=== PATIENT | male | born 1985 | race Caucasian/White ===

== ENCOUNTER 2024-11-25 14:25 | Outpatient (AMB) | payer OTHER, SELFPAY ==
--- NOTE | 2024-11-25 14:27 | A.OFFPC_ITS ---
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 Intake Note: new patient to establish care Inventory Analyst Required: No Allergies No Known Allergies Allergy (Verified 11/25/24 14:28) Medication List - Last Reconciled 11/25/24 by Rosalee Alvarez PA-C No Known Home Meds Tobacco use date assessed: 11/25/24 Dental Screening Dental Screen Date: 11/25/24 Did you have a dental visit in the last 12 months?: Yes Did you have a dental problem in the last 6 months where you did not have access to dental care?: No Was dental information given to patient?: Patient has dentist HPI 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 Patient states that the hernia has been on and off for the past year and that anytime he does heavy lifting or certain exercises he has a bulge in his groin area. It is reducible. It is now intermittently becoming painful. He wants this taken care of. He is trying to live a very healthy and active lifestyle. Psych: Recently quit drinking completely and is following with a therapist for his anxiety, PTSD and depression. He has a longstanding history of this following his deployment to [place]. He is going to plan to meet with a med prescriber at some point. Neuro: He has headaches following his [place] deployment. He has had an MRI. He states that there is no change in the headaches and that he does get them about once a month. Relieved with OTC analgesics. Has been evaluated for this. GI: Had a colonoscopy last year. He does have some IBS symptoms of diarrhea. Again, this did all also start after his deployment and thought likely to be related to stress related to his [place] deployment but also he had significant burn pit exposure. He has a family history of colon cancer and was told despite the normal colonoscopy he does need to return around 2028 for repeat colonoscopy. GI symptoms stable and at baseline. CV: Since quitting drinking his blood pressure has been a lot better. He is also down about 10 lb. PFSH Medical History (Updated 11/25/24 @ 14:54 by Rosalee Alvarez PA-C) No pertinent past medical history Surgical History (Updated 11/25/24 @ 14:34 by Earlene Perez MA) History of gastric surgery Family History (Updated 11/25/24 @ 14:33 by Earlene Perez MA) Paternal Grandfather Substance abuse Cardiovascular disease Maternal Grandmother Cancer Mother Hypertension Father Hypertension Social History (Updated 11/25/24 @ 14:32 by Earlene Perez MA) Household Members: Spouse and Children Both parents involved: No Caregiver staying overnight: No Housing: House Are you a primary critical care paramedic to a significant other at home: No Do you presently have visiting nurse or other home services: No 75 years or older and lives alone: No Alcohol intake: current Alcohol intake frequency: a few times a month Patient Tobacco Use Status: Never used Tobacco e-Cigarette/Vaping Use: Never Used Second Hand Smoke Exposure: No Current occupational status: employed Current occupation: [email or web address] Cognitive needs: No Hearing needs: No Vision needs: No Questionnaire PHQ-9 Over the last 2 weeks, how often have you been bothered by any of the following problems? 1. Little interest or pleasure in doing things: not at all 2. Feeling down, depressed, or hopeless: not at all 3. Trouble falling or staying asleep, or sleeping too much: several days 4. Feeling tired or having little energy: not at all 5. Poor appetite or overeating: not at all 6. Feeling bad about yourself - or that you are a failure or have let yourself or your family down: not at all 7. Trouble concentrating on things, such as reading the newspaper or watching television: not at all 8. Moving or speaking so slowly that other people could have noticed. Or the opposite - being so fidgety or restless that you have been moving around a lot more than usual: not at all 9. Thoughts that you would be better off or of hurting yourself in some way: not at all Total score: 1 Depression Screening Interpretation: Positive Depression Screening Follow-up: Existing condition and In treatment Depression Screening Done: Yes 47915 - PHQ-9 Billing: Yes Source: Developed by Drs. Zeke L. JobMely haile, Asim Bishop and colleagues, with an educational disha from [employer]. Thrive Questionnaire Date Thrive assessed: 11/25/24 I am a: Patient What is your living situation today?: I have a steady place to live Within the past 12 months, did the food you bought not last and you didn't have the money to get more?: Never true Within the past 12 months, did you worry whether your food would run out before you got money to buy more?: Never true Do you have trouble paying for medicines?: No Do you have trouble getting transportation to medical appointments?: No Do you have trouble paying your heating and electricity bill?: No Do you have trouble taking care of your child, family member or friend?: No Do you have trouble with day-to-day activities such as bathing, preparing meals, shopping, managing finances, etc.?: No Are you currently unemployed and looking for a job?: No Are you interested in more education?: No Please select the resources that you would like help with: None Currently or been in a relationship where the following occur: No concerns reported THRIVE Score: 0 AUDIT C Alcohol Use Questionnaire (AUDIT-C) 1. How often do you have a drink containing alcohol?: 2-4 times a month 2. How many drinks containing alcohol do you have on a typical day when you are drinking?: 3 or 4 3. How often do you have six or more drinks on one occasion?: Less than monthly Total Score: 4 Score Reviewed/Action Taken: Yes YUKO-7 AMB Questionnaire YUKO-7 Date YUKO - 7 assessed: 11/25/24 Feeling nervous, anxious, or on edge: 0 = Not at all Not being able to stop or control worryin = Not at all Worrying too much about different things: 0 = Not at all Trouble relaxin = Not at all Being so restless that it is hard to sit still: 0 = Not at all Becoming easily annoyed or irritable: 0 = Not at all Feeling afraid as if something awful might happen: 0 = Not at all Total YUKO-7 score (0-4 normal; 5-9 mild; 10-14 moderate; 15-21 severe): 0 Source: Developed by Mely Vilchis Kurt Kroenke and colleagues, with an educational disha from [employer]. YUKO-7 Assessment Billing YUKO-7 Assessment Tool: UYKO-7 Assessment 99646 Physical exam (Primary Care) Vital Signs: Last Vital Signs Pulse 78 11/25/24 14:34 Resp 13 11/25/24 14:34 BP 118/68 11/25/24 14:34 Pulse Ox 97 11/25/24 14:34 Oxygen Delivery Method Room Air 11/25/24 14:34 BMI result Body Mass Index 31.4 Tobacco/Smoking Status: Tobacco use Status Tobacco use date assessed 11/25/24 11/25/24 14:35 Patient Tobacco Use Status Never used Tobacco 11/25/24 14:35 e-Cigarette/Vaping Use Never Used 11/25/24 14:35 PHQ-9: PHQ-9 Score PHQ-9: Total score 1 11/25/24 14:30 Depression Screening Interpretation: Positive Depression Screening Follow-up: Existing condition and In treatment Thrive Assessment: Date of Thrive Assessment Date Thrive assessed 11/25/24 11/25/24 14:30 Currently or been in a relationship where the following occur: No concerns reported Const Orientation/consciousness: patient oriented x3 HENMT Ears: hearing grossly normal bilaterally Neck Thyroid: Thyroid normal Lymphatic: no lymphadenopathy noted Resp Auscultation: clear to auscultation bilaterally Cardio Rate: regular rate Rhythm: regular rhythm Heart sounds: S1 normal heart sound present and S2 normal heart sound present GI Inspection: Yes normal to inspection Palpation (GI): Soft to palpation and Other GI palpation findings present (nontender, no cva tenderness) Auscultation: normoactive bowel sounds Rectal Exam - Male: Yes deferred Skin General skin exam: no rashes or lesions noted Neuro General: patient oriented x3, gait normal and no focal motor deficits Coding Level of Care Code Est Pt Level 4 (80025) Complex EM visit Add On G2211 Diagnoses Elevated blood pressure reading in office without diagnosis of hypertension R03.0 Family hx of colon cancer Z80.0 PTSD (post-traumatic stress disorder) F43.10 Migraines G43.909 IBS (irritable bowel syndrome) K58.9 Anxiety with depression F41.8 Left groin hernia K40.90 Additional Codes YUKO-7 Assessment Billing - YUKO-7 Assessment Tool: YUKO-7 Assessment 34783 ([id number]) PHQ-9 - 56058 - PHQ-9 Billing: Yes ([id number]) Assessment & Plan Assessment & Plan (1) Elevated blood pressure reading in office without diagnosis of hypertension: Code(s): R03.0 - Elevated blood-pressure reading, without diagnosis of hypertension Category: Medical Plan: Blood pressure WNL today. Continue with a healthy lifestyle. We will monitor (2) Family hx of colon cancer: Code(s): Z80.0 - Family history of malignant neoplasm of digestive organs Category: Medical Plan: Up-to-date colonoscopy (3) PTSD (post-traumatic stress disorder): Code(s): F43.10 - Post-traumatic stress disorder, unspecified Category: Medical Plan: Following with behavioral health (4) Migraines: Code(s): G43.909 - Migraine, unspecified, not intractable, without status migrainosus Category: Medical Plan: Stable. (5) IBS (irritable bowel syndrome): Code(s): K58.9 - Irritable bowel syndrome, unspecified Category: Medical Plan: Stable. Has been worked up by GI. (6) Anxiety with depression: Code(s): F41.8 - Other specified anxiety disorders Category: Medical Plan: Following behavioral health. No SI/HI. (7) Left groin hernia: Code(s): K40.90 - Unilateral inguinal hernia, without obstruction or gangrene, not specified as recurrent Category: Medical Plan: Referral to General surgery. Plan Labs ordered today. We will follow up pending test results. Orders: Orders Complete Blood Count Auto Diff Today F41.8 - Other specified anxiety disorders, F43.10 - Post-traumatic stress disorder, unspecified, G43.909 - Migraine, unspecified, not intractable, without status migrainosus, K58.9 - Irritable bowel syndrome, unspecified, R03.0 - Elevated blood-pressure reading, without diagnosis of hypertension, Z80.0 - Family history of malignant neoplasm of digestive organs Lipid Panel Today F41.8 - Other specified anxiety disorders, F43.10 - Post- traumatic stress disorder, unspecified, G43.909 - Migraine, unspecified, not intractable, without status migrainosus, K58.9 - Irritable bowel syndrome, unspecified, R03.0 - Elevated blood-pressure reading, without diagnosis of hypertension, Z80.0 - Family history of malignant neoplasm of digestive organs Comprehensive Sherman. Panel Fast Today F41.8 - Other specified anxiety disorders, F43.10 - Post-traumatic stress disorder, unspecified, G43.909 - Migraine, unspecified, not intractable, without status migrainosus, K58.9 - Irritable bowel syndrome, unspecified, R03.0 - Elevated blood-pressure reading, without diagnosis of hypertension, Z80.0 - Family history of malignant neoplasm of digestive organs TSH reflex Free T4 Today F41.8 - Other specified anxiety disorders, F43.10 - Post-traumatic stress disorder, unspecified, G43.909 - Migraine, unspecified, not intractable, without status migrainosus, K58.9 - Irritable bowel syndrome, unspecified, R03.0 - Elevated blood-pressure reading, without diagnosis of hypertension, Z80.0 - Family history of malignant neoplasm of digestive organs Prostate Specific Antigen Scr Today F41.8 - Other specified anxiety disorders, F43.10 - Post-traumatic stress disorder, unspecified, G43.909 - Migraine, unspecified, not intractable, without status migrainosus, K58.9 - Irritable bowel syndrome, unspecified, R03.0 - Elevated blood-pressure reading, without diagnosis of hypertension, Z01.89 - Encounter for other specified special examinations, Z80.0 - Family history of malignant neoplasm of digestive organs UA CC w/rflx Micro + Cult Today F41.8 - Other specified anxiety disorders, F43.10 - Post-traumatic stress disorder, unspecified, G43.909 - Migraine, unspecified, not intractable, without status migrainosus, K58.9 - Irritable bowel syndrome, unspecified, R03.0 - Elevated blood-pressure reading, without diagnosis of hypertension, Z13.220 - Encounter for screening for lipoid disorders, Z80.0 - Family history of malignant neoplasm of digestive organs Referrals General Surgery Referral K40.90 - Unilateral inguinal hernia, without obstruction or gangrene, not specified as recurrent
[2024-11-25 14:34] VITALS: BP 118/68; PULSE 78; RESP 13; O2SAT 97; BMI 31.4
--- OUTSIDE RECORDS SUMMARY | 2024-11-25 16:36 | XMS_ITS | Continuity of Care Document ---
Author Name [facility] Organization [facility] Care Team Providers Care Assembler [employer]icon[employer] Name Role Phone [facility] Unavailable Unavailable Problems Combined list of problems from Department of Defense and Veterans Affairs facilities. It does not include entries that were removed or entered in error. Problem Status Onset Date Problem Type Date of Resolution Comments Source Nicotine Dependence Active Condition [facility] visit for: screening exam Inactive Condition audiogram [facility] ingrowing nail Inactive Condition [facility] Aftercare Following Surgery Of Musculoskeletal System Active Condition DoD Allergies, Adverse Reactions, Alerts Combined list of allergies from Department of Defense and Veterans Affairs facilities. It does not include entries that were removed or entered in error. Substance Category Reaction Severity Reaction type Status Date Reported Comments Source No Known Allergies Drug allergy (disorder) active 11/28/2006 [place] [employer] [place] Encounters Combined list of: 1) Encounters from Department of Veterans Affairs facilities going back up to thelast 18 months. 2) Encounters from the Department of Defense facilities going back up to 280 months. Location Location Details Encounter Type Encounter Number Reason For Visit Attending Provider ADM Date DC Date Status Disposition Source [place] [employer] [place], DIRECT TO [facility] [id number] 11/21 [place]URNED TO [place] [employer] [place] [employer] [place]([facility] OUTPATIENT [id number] [facility] 06/27 Released w/o Limitations [place] [employer] [place] [place] [facility] [place] [employer] [place] OUTPATIENT [id number] per EVER Hernandez 07/04 Released with Work/Duty Limitations [place] [employer] [place] [place] [place] [facility] [place] [employer] [place] OUTPATIENT [id number] f/up booked per EVER Murillo 07/11 Released w/o Limitations [place] [employer] [place] [place] [place] [facility] [place] , [place]([facility] [employer] INPATIENT [id number] audiogr am JORDY HANSEN 11/20 Inpatient- Still a Patient [facility] [place]) Procedures Combined list of: 1) Procedures from Department of Veterans Affairs facilities going back up to thelast 18 months, not all VA non-surgical procedures are included; 2) All procedures from the Department of Defense facilities. Procedure Procedure Type Code Date Perfomer Comments Sourc e Partial Permanent Excision Nail, Matrix Left First Toe Partial Permanent Excision Nail, Matrix Left First Toe [id number] 06/28/2005 [place] AGUILERA Partial Permanent Excision Nail, Matrix Right First Toe Partial Permanent Excision Nail, Matrix Right First Toe [id number] 06/28/2005 [place] AGUILER[place] Social History Combined list of available smoking, tobacco, and other social history from Department of Defense and Veterans Affairs facilities. Social History Type Response Date Comment Source Tobacco smoking status NHIS PREVIOUS SMOKER [facility]20[facility] [place] [facility] History of tobacco use AH-BPR SMOKING DEPLOYMENT YES 06/18/2022 [facility] [place] [facility] History of tobacco use QUIT TOBACCO USE IN PAST YEAR 09/24/2007 [place] History of tobacco use V1-PT DECLINES TOBACCO CESSATION MEDS 03/23/2007 [place] History of tobacco use CURRENT SMOKER 03/18/2007 occasionally smokes 6-7 cigarettes, duration 3 years [place] This section is an empty social history section. [facility]
== END 2024-11-25 16:50 | disposition home or self-care (01) ==
PROVIDERS: PCP Physician Assistant; Visit Provider Physician Assistant
DX: R03.0 Elevated blood-pressure reading, without diagnosis of hypertension (principal); Z80.0 Family history of malignant neoplasm of digestive organs; F43.10 Post-traumatic stress disorder, unspecified; G43.909 Migraine, unspecified, not intractable, without status migrainosus; K58.9 Irritable bowel syndrome, unspecified; F41.8 Other specified anxiety disorders; K40.90 Unilateral inguinal hernia, without obstruction or gangrene, not specified as recurrent

== ENCOUNTER → 2024-11-25 14:25 | Outpatient (BNVA) | payer OTHER, SELFPAY | PROVIDERS: PCP Physician Assistant; Visit Provider Physician Assistant | DX: R03.0 Elevated blood-pressure reading, without diagnosis of hypertension (principal); F43.10 Post-traumatic stress disorder, unspecified; G43.909 Migraine, unspecified, not intractable, without status migrainosus; K58.9 Irritable bowel syndrome, unspecified; F41.8 Other specified anxiety disorders; K40.90 Unilateral inguinal hernia, without obstruction or gangrene, not specified as recurrent; Z80.0 Family history of malignant neoplasm of digestive organs | CPT/HCPCS: 96127 ==

== ENCOUNTER 2024-11-29 08:07 | Outpatient (REF) | payer OTHER, SELFPAY ==
--- OUTSIDE RECORDS SUMMARY | 2024-11-29 08:11 | XMS_ITS | Continuity of Care Document ---
Author Name [facility] Organization [facility] Care Team Providers Care Overlock Waistline Joiner Name Role Phone [facility] Unavailable Unavailable Problems Combined list of problems from Department of Defense and Veterans Affairs facilities. It does not include entries that were removed or entered in error. Problem Status Onset Date Problem Type Date of Resolution Comments Source Nicotine Dependence Active Condition [facility] visit for: screening exam Inactive Condition audiogram [facility] ingrowing nail Inactive Condition [facility] Aftercare Following Surgery Of Musculoskeletal System Active Condition DoD Allergies, Adverse Reactions, Alerts Combined list of allergies from Department of Defense and Veterans Affairs facilities. It does not include entries that were removed or entered in error. Substance Category Reaction Severity Reaction type Status Date Reported Comments Source No Known Allergies Drug allergy (disorder) active 11/28/2006 [place] [employer] [place] Encounters Combined list of: 1) Encounters from Department of Veterans Affairs facilities going back up to thelast 18 months. 2) Encounters from the Department of Defense facilities going back up to 280 months. Location Location Details Encounter Type Encounter Number Reason For Visit Attending Provider ADM Date DC Date Status Disposition Source [place] [employer] [place], DIRECT TO [facility] [id number] 11/21 [place] [employer] [place] [employer] [place] OUTPATIENT [id number] [facility] 06/27 Released w/o Limitations [place] [employer] [place] [place] [facility] [employer] [place] OUTPATIENT [id number] per EVER Hernandez 07/04 Released with Work/Duty Limitations [place] [employer] [place] [place] [facility] [employer] [place] OUTPATIENT [id number] f/up booked per EVER Murillo 07/11 Released w/o Limitations [place] [employer] [place] [place] [facility] [place] , [place]([employer] [facility] [employer] [employer]) INPATIENT [id number] audiogr am JORDY HANSEN 11/20 Inpatient- Still a Patient [facility] [place]) [...] Permanent Excision Nail, Matrix Left First Toe [id number] 06/28/2005 [place] AGUIL[place] Partial Permanent Excision Nail, Matrix Right First Toe Partial Permanent Excision Nail, Matrix Right First Toe [id number] 06/28/2005 [place] Social History Combined list of available smoking, tobacco, and other social history from Department of Defense and Veterans Affairs facilities. Social History Type Response Date Comment Source Tobacco smoking status NHIS PREVIOUS SMOKER [facility] [place] [facility] History of tobacco use AH-BPR SMOKING DEPLOYMENT YES [facility] [place] [facility] History of tobacco use QUIT TOBACCO USE IN PAST YEAR 09/24/2007 [place] History of tobacco use V1-PT DECLINES TOBACCO CESSATION MEDS 03/23/2007 [place] History of tobacco use CURRENT SMOKER 03/18/2007 occasionally smokes 6-7 cigarettes, duration 3 years [place] This section is an empty social history section. [facility]
[2024-11-29 11:00] LABS: MANUAL DIFF FLAG NO
[2024-11-29 11:05] LABS: Appearance Urine Turbid; Color Urine Yellow; Glucose Urine UA Negative (Negative); Leukocyte Esterase Urine Negative (Negative); Nitrite Urine Negative (Negative); PH 5.5 (5.0-9.0); Specific Gravity - Urine >= 1.030 (1.005-1.025); Urine Blood Negative (Negative); Urine Ketones Negative (Negative); Urine Protein Negative (Neg-Trace)
[2024-11-29 11:19] LABS: Basophils Percent Auto 0.8 % (0-2); Eosinophils Absolute Auto 0.1 X10*3/uL (0.0-0.4); Eosinophils Percent Auto 1.6 % (0-4); Hemoglobin 15.9 g/dl (14.0-18.0); Imm Gran Abs Auto 0.02 X10*3/uL (0.00-0.03); Imm Gran Pct Auto 0.5 % (0.0-0.4); Lymphocytes Absolute Auto 1.5 X10*3/uL (1.2-4.9); Lymphocytes Percent Auto 38.9 % (20-40); Mean Corpuscular HGB Conc 33.1 g/dl (31.0-36.0); Mean Corpuscular Hemoglobin 28.8 pg (27.0-33.0); Mean Platelet Volume 9.7 fL (9.4-12.4); Monocytes Absolute Auto 0.5 X10*3/uL (0.1-1.2); Neutrophils Absolute Auto 1.7 x10*3/uL (2.0-8.3); Neutrophils Percent Auto 44.2 % (45-73); Platelet Count 246 X10*3/uL (160-400); Red Blood Count 5.52 X10*6/uL (4.60-5.80); Red Cell Distribution Width 13.3 % (11.0-16.0); White Blood Count 3.9 X10*3/uL (4.8-10.8)
[2024-11-29 11:47] LABS: Prostate Specific Antigen Scr 0.36 ng/mL (<0.05-4.0)
[2024-11-29 11:51] LABS: Alanine Aminotransferase 38 U/L (0-40); Albumin Level 4.5 g/dL (3.5-5.0); Alkaline Phosphatase 80 U/L (39-117); Anion Gap 10 (12-20); Aspartate Amino Transferase 31 U/L (5-37); Bilirubin Total 0.5 mg/dL (0.0-1.0); Blood Urea Nitrogen 22 mg/dL (9-16); Calcium 9.4 mg/dL (8.4-10.2); Carbon Dioxide 30 mmol/L (22-29); Chloride 105 mmol/L (96-108); Cholesterol 197 mg/dL (<200); Estimated Glomerular Filt Rate > 60; Glucose Fasting 101 mg/dL (60-99); HDL Cholesterol 36 mg/dL (>40); LDL Cholesterol Calculated 148 mg/dL (<100); Potassium 4.1 mmol/L (3.3-5.1); Sodium 141 mmol/L (135-145); TSH reflex Free T4 0.93 uIU/mL (0.32-4.0); Total Protein 7.3 g/dL (6.5-8.0); Triglycerides 66 mg/dL (<150)
== END 2024-11-29 08:08 | disposition home or self-care (01) ==
LOC: HO.WFDLDS 08:07
PROVIDERS: Visit Provider Physician Assistant
DX: R03.0 Elevated blood-pressure reading, without diagnosis of hypertension (principal); Z80.0 Family history of malignant neoplasm of digestive organs; F43.10 Post-traumatic stress disorder, unspecified; G43.909 Migraine, unspecified, not intractable, without status migrainosus; K58.9 Irritable bowel syndrome, unspecified; F41.8 Other specified anxiety disorders; Z01.89 Encounter for other specified special examinations; Z13.220 Encounter for screening for lipoid disorders; Z12.5 Encounter for screening for malignant neoplasm of prostate
CPT/HCPCS: 36415; 80053; 80061; 81003; 84153; 84443; 85025

== ENCOUNTER 2024-12-07 12:51 | Outpatient (AMB) | payer OTHER, SELFPAY ==
--- NOTE | 2024-12-07 13:40 | MHC.OFFVIS ---
Vital Signs 12/07/24 13:42 Height 6 ft 1 in Weight 238 lb BMI 31.4 BP 120/80 Blood Pressure Location Rt brachial Position Sitting Pulse 78 Intake Visit Reasons: hernia Intake Note: Patient referred by pcp Rosalee Alvarez PA-C for left inguinal hernia. Patient c/o: denies pain. Supreme Court Judge Required: No Allergies No Known Allergies Allergy (Verified 11/25/24 14:28) HPI Comments Details: Patient presents with a year and a half of left groin swelling/bulging while doing strenuous activities. It has increased over the last several weeks time. He thinks he has a hernia and presents here for further evaluation. Patient had a vasectomy in the past. He has no other prior abdominal surgeries. He is otherwise tolerating a diet. Having regular bowel habits. 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 Chart was reviewed and patient evaluated [facility] Medical History No pertinent past medical history Surgical History History of gastric surgery Family History Paternal Grandfather Substance abuse Cardiovascular disease Maternal Grandmother Cancer Mother Hypertension Father Hypertension Social History Household Members: Spouse and Children Both parents involved: No Caregiver staying overnight: No Housing: House Are you a primary care support representative to a significant other at home: No Do you presently have visiting nurse or other home services: No 75 years or older and lives alone: No Alcohol intake: current Alcohol intake frequency: a few times a month Patient Tobacco Use Status: Never used Tobacco e-Cigarette/Vaping Use: Never Used Second Hand Smoke Exposure: No Current occupational status: employed 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 Chest Other: Chest breath sounds bilaterally, HS 1 in 2 GI Other: Patient was examined both supine and standing with Valsalva. Right groin negative. Genitalia within normal limits. Patient has slight weakness of the left groin but no obvious/overt hernia was demonstrated. Assessment & Plan Assessment & Plan (1) Left groin hernia: Code(s): K40.90 - Unilateral inguinal hernia, without obstruction or gangrene, not specified as recurrent Category: Surgical Plan I discussed therapeutic options with the patient which are observation, an ultrasound of the area to evaluate for hernia, or surgical exploration. He insists that with strenuous activities he does developed a bulge/swelling there and would like to have it repaired. The current plan is to arrange for open left inguinal herniorrhaphy with mesh. Risks, benefits, alternatives of the procedure reviewed with the patient included but not limited to bleeding, infection, recurrence, numbness, pain, scarring the patient wished to proceed. Arrangements made for this. In the meantime, should that bulge become more evident/overt, patient was instructed to contact the office inguinal see him for evaluation for hernia. Coding Level of Care Code New Pt Level 5 (56735) Diagnoses Left groin hernia K40.90
[2024-12-07 13:42] VITALS: BP 120/80; PULSE 78; BMI 31.4
--- OUTSIDE RECORDS SUMMARY | 2024-12-07 14:28 | XMS_ITS | Continuity of Care Document ---
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 It does not include entries that were removed or entered in error. Problem Status Onset Date Problem Type Date of Resolution Comments Source visit for: screening exam Inactive Condition audiogram [facility] ingrowing nail Inactive Condition DoD Aftercare Following Surgery Of Musculoskeletal System Active Condition [facility] Nicotine Dependence Active Condition [facility] Allergies, Adverse Reactions, Alerts Combined list of allergies from Department of Defense and Veterans Affairs facilities. It does not include entries that were removed or entered in error. Substance Category Reaction Severity Reaction type Status Date Reported Comments Source No Known Allergies Drug allergy (disorder) active 11/28/2006 [facility] [place] [place] Encounters Combined list of: 1) Encounters from Department of Veterans Affairs facilities going back up to thelast 18 months. 2) Encounters from the Department of Defense facilities going back up to 280 months. Location Location Details Encounter Type Encounter Number Reason For Visit Attending Provider ADM Date DC Date Status Disposition Source [facility] [place] [facility] [place], DIRECT TO [facility] [id number] 11/21 [place]URN[place] [employer] [place] [facility] [place] [facility] [place]) OUTPATIENT [id number] [facility] SL[facility] 06/27 Released w/o Limitations [facility] [employer] [place] [place] OUTPATIENT [id number] per EVER Hernandez 07/04 Released with Work/Duty Limitations [facility] [place] [place] OUTPATIENT [id number] f/up booked per EVER Murillo 07/11 Released w/o Limitations [facility] [employer] [place] [place] , [place]([facility] INPATIENT [id number] audiogr am JORDY HANSEN 11/20 Inpatient- Still a Patient [facility] [place]) [...] Permanent Excision Nail, Matrix Left First Toe [id number] 06/28/2005 [place] AGUILERA Partial Permanent Excision Nail, Matrix Right First Toe Partial Permanent Excision Nail, Matrix Right First Toe [id number] 06/28/2005 [place] AGUILER[place] Social History Combined list of available smoking, tobacco, and other social history from Department of Defense and Veterans Affairs facilities. Social History Type Response Date Comment Source Tobacco smoking status NHIS PREVIOUS SMOKER [facility] [place] [facility] History of tobacco use AH-BPR SMOKING DEPLOYMENT YES [facility]20[facility] [place] [facility] History of tobacco use QUIT TOBACCO USE IN PAST YEAR 09/24/2007 [facility] History of tobacco use V1-PT DECLINES TOBACCO CESSATION MEDS 03/23/2007 [facility] History of tobacco use CURRENT SMOKER 03/18/2007 occasionally smokes 6-7 cigarettes, duration 3 years [facility] This section is an empty social history section. [facility]
== END 2024-12-07 14:07 | disposition home or self-care (01) ==
LOC: HO.HGS 12:51
PROVIDERS: PCP Physician Assistant; Visit Provider Surgery
DX: K40.90 Unilateral inguinal hernia, without obstruction or gangrene, not specified as recurrent (principal)
CPT/HCPCS: 99204

== ENCOUNTER → 2024-12-07 12:51 | Outpatient (BNVA) | payer OTHER, SELFPAY | PROVIDERS: PCP Physician Assistant; Visit Provider Surgery ==

== ENCOUNTER 2025-01-06 10:19 | Day surgery (SDC) | payer OTHER, SELFPAY ==
[2025-01-04 08:42] VITALS: BMI 31.4
--- NOTE | 2025-01-05 09:55 | MHC.SHP ---
Pre-Procedural Eval Section A - 24 Hr Update-Section A only Date of Service: 01/06/25 The patient is an INPATIENT: No Changes since office visit: No Cold of Flu in the past 2 weeks, No New Medical Problems, No Changes in Medication and No Patient answered all questions Section B - Complete if H&P > 30 days Chief Complaint: Unilateral inguinal hernia, without obstruction or Allergies: Allergies Allergy/AdvReac Type Severity Reaction Status Date / Time No Known Allergies Allergy Verified 11/25/24 14:28 Review of Systems Sugical H&P ROS: Negative: Constitution, Cardiovascular, Respiratory, Neurological, Psychiatric, Hem-Onc, Allergic/Immunologic, Gastrointestinal, Genitourinary, Musculoskeletal, Integumentary, Endocrine and Eyes/Ears/Nose/Throat Exam Surgical H&P Exam: Normal: HEENT, Normal: Heart, Normal: Lungs, Normal: Extremities, Normal: Abdomen, Normal: Skin and Normal: Neurological Plan I have reviewed the history and physical and performed a pertinent physical examination on my patient. No changes have occurred unless specified. Time Spent With Patient Time: Total time managing care of this patient today ____ minutes.
[2025-01-06 10:32] VITALS: RESP 18; TEMP 36.9; O2SAT 98; BMI 31.5
[2025-01-06] MEDS: Lactated Ringers 1,000 ML 50 ML IVCONT (10:49)
[2025-01-06 10:54] VITALS: BP 162/99
--- NOTE | 2025-01-06 13:33 | HO.ANESPROP2 ---
[facility] Active Problems Active Problems: All Active Problems IFG (impaired fasting glucose) (Acute) Abnormal CBC (Acute) Left groin hernia (Acute) Anxiety with depression (Acute) IBS (irritable bowel syndrome) (Acute) Migraines (Acute) PTSD (post-traumatic stress disorder) (Acute) Elevated blood pressure reading in office without diagnosis of hypertension (Acute) Family hx of colon cancer (Acute) Past Medical History Medical History PTSD (post-traumatic stress disorder) Migraines IBS (irritable bowel syndrome) Anxiety with depression Family History Family History Paternal Grandfather Substance abuse Cardiovascular disease Maternal Grandmother Cancer Mother Hypertension Father Hypertension Surgical History Surgical History H/O colonoscopy History of gastric surgery History of Problems with Anesthesia: No Social History Social History Household Members: Spouse and Children Housing: House Are you a primary care manager to a significant other at home: No Do you presently have visiting nurse or other home services: No Alcohol intake: current Alcohol intake frequency: does not drink Patient Tobacco Use Status: Never used Tobacco e-Cigarette/Vaping Use: Never Used Second Hand Smoke Exposure: No Have you been hit, kicked, punched, or otherwise hurt by someone within the past year? 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 Cognitive needs: No Hearing needs: No Vision needs: No Meds Allergies Allergy/AdvReac Type Severity Reaction Status Date / Time No Known Allergies Allergy Verified 11/25/24 14:28 Active Medications: Current Medications Lactated Ringer's (Lr) 1,000 mls @ 50 mls/hr IVCONT .Q20H CARMEN Last Admin: 01/06/25 10:49 Dose: 50 mls/hr Exam Height,Weight and Vital Signs: Height 6 ft 1 in Weight 108.23 kg Last Vital Signs Temp 98.5 F 01/06/25 10:32 Resp 18 01/06/25 10:32 BP 162/99 H 02/20/25 10:54 Pulse Ox 98 01/06/25 10:32 O2 Del Method Room Air 01/06/25 10:32 Airway Mallampati Class: II TM Dist: >3cm Neck ROM: Full Loose/Missing/Broken Teeth: No Heart: RRR Lungs: CTA Assessment and Plan Assessment Anesthesia Assessment: Anesthesia Plan Discussed and Chart Reviewed Final Anesthetic Review History of Problems with Anesthesia: No NPO: Yes ASA Class: II Final Preanesthetic Review: Meds/Allgs Chart Reviewed, Consent Obtained/Reviewed and Anes Risks/Benef Reviewed Patient Risk: Low Procedure Risk: Low Anesthetic Plan Anesthetic Plan: GA Disposition: Standard PACU
--- NOTE | 2025-01-06 14:39 | P.OP_ITS ---
Operative Note Operative Note Date of Service: 01/06/25 Narrative: Preoperative diagnosis: [] Symptomatic left inguinal hernia Postop diagnosis: [] The same Procedure [] open left inguinal herniorrhaphy with Bard mesh Surgeon: [] Phillip Revenue Investigator: [] Mason Type of Anesthesia: [] GEN Indication for surgery: [] Moderately sized indirect left inguinal hernia. No direct hernia demonstrated. Findings: [] Patient brought to the operating room, placed on operative table supine position, after an adequate level of general anesthesia was induced, the left groin was prepped and draped in usual sterile fashion using an ilioinguinal block as well as local infiltration with 0.5% Marcaine/1% lidocaine, a small para inguinal incision was made And carried down through skin, subcutaneous tissue, and Nando's fascia. External oblique fibers were opened their direction with care to isolate and preserve the ilioinguinal nerve throughout the procedure. Spermatic cord was identified and retracted from the field. No direct hernia was demonstrated. A moderately sized indirect hernia sac was from the cord and reduced. A Bard plug was placed in the indirect defect, and sutured inferiorly to the inguinal ligament, and superiorly to the transversalis fascia using interrupted 0 Ethibond suture. Mesh also covered the inguinal floor. At completion of procedure, mesh was in good position with no gaps or tension. Wound was irrigated, secured hemostasis, and closed in the following manner; external oblique fascia was reapproximated using running 2-0 Vicryl suture. Nando's fascia was reapproximated using interrupted 3-0 Vicryl suture. Interrupted inverted deep dermal 3-0 Vicryl sutures followed by running subcuticular 4-0 Vicryl sutures were placed. Steri-Strips and sterile dressings were applied. Wound was again infiltrated 0.5% Marcaine/1% lidocaine at completion. Sponge, needle, and instrument counts reported correct. Patient tolerated the procedure well and emerged from anesthesia stable condition. EBL minimal. Ipsilateral testicle was intrascrotal at completion.
[2025-01-06 14:48] VITALS: BP 136/67; PULSE 79; RESP 18; TEMP 36.1; O2SAT 98
[2025-01-06 14:50] VITALS: BP 130/55; PULSE 81; RESP 18; O2SAT 98
[2025-01-06 14:55] VITALS: BP 145/68; PULSE 69; RESP 18; O2SAT 98
[2025-01-06 15:00] VITALS: BP 139/64; PULSE 67; RESP 18; TEMP 36.1; O2SAT 98
== END 2025-01-06 15:33 | disposition home or self-care (01) ==
PROVIDERS: PCP Internal Medicine; Visit Provider Surgery
PROC: (CPT 49505; principal; 2025-01-06 13:40)
DX: K40.90 Unilateral inguinal hernia, without obstruction or gangrene, not specified as recurrent (principal); K58.9 Irritable bowel syndrome, unspecified; F43.10 Post-traumatic stress disorder, unspecified; F41.8 Other specified anxiety disorders; G43.909 Migraine, unspecified, not intractable, without status migrainosus; Z98.52 Vasectomy status
CPT/HCPCS: 49505; C1781; J0131; J0690; J2003; J2250; J2704; J2795; J3010

== ENCOUNTER → 2025-01-06 10:19 | Outpatient (BNV) | payer OTHER, SELFPAY | PROVIDERS: PCP Internal Medicine; Visit Provider Surgery | DX: K40.90 Unilateral inguinal hernia, without obstruction or gangrene, not specified as recurrent (principal) | CPT/HCPCS: 49505 ==

== ENCOUNTER 2025-01-17 10:02 | Outpatient (AMB) | payer OTHER, SELFPAY ==
--- NOTE | 2025-01-17 10:03 | A.OFFVIS_ITS ---
Intake Visit Reasons: S/P LIH w/mesh Intake Note: Patient here s/p open left inguinal herniorrhaphy with Bard mesh. Reports incision healing well. Patient c/o: no concern. No longer taking rx pain meds. Surgery: 01-06-2025 Certified Veterinary Technician Required: No Accompanied by: Spouse Allergies No Known Allergies Allergy (Verified 01/17/25 10:06) HPI Comments Details: Patient presents with his for follow-up status post left inguinal hernia repair. He has no wound issues or complaints. He is tolerating a diet. Having regular bowel habits. He is increasing his stapler level. Minimal incisional discomfort. Patient was like to return to work with light duty. [facility] Medical History PTSD (post-traumatic stress disorder) Migraines IBS (irritable bowel syndrome) Anxiety with depression Surgical History (Updated 01/17/25 @ 10:27 by Pankaj Fisher MD) Left groin hernia (01/06/25) H/O colonoscopy History of gastric surgery Family History Paternal Grandfather Substance abuse Cardiovascular disease Maternal Grandmother Cancer Mother Hypertension Father Hypertension Social History Household Members: Spouse and Children Both parents involved: No Caregiver staying overnight: No Housing: House Are you a primary critical care cns to a significant other at home: No Do you presently have visiting nurse or other home services: No 75 years or older and lives alone: No Alcohol intake: current Alcohol intake frequency: does not drink Patient Tobacco Use Status: Never used Tobacco e-Cigarette/Vaping Use: Never Used Second Hand Smoke Exposure: No Current occupational status: employed 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 Incision clean dry and intact healing well Assessment & Plan Assessment & Plan (1) Status post inguinal hernia repair: Code(s): Z98.890 - Other specified postprocedural states; Z87.19 - Personal history of other diseases of the digestive system Category: Medical Plan Patient was been given local instructions including avoiding strenuous activities for next 4-6 weeks time and will otherwise follow-up p.r.n.. He has not required note for work but will be on light duty. All questions answered. Patient will otherwise follow-up p.r.n. Coding Level of Care Code Global (37738) Diagnoses Status post inguinal hernia repair Z98.890; Z87.19
--- OUTSIDE RECORDS SUMMARY | 2025-01-17 11:26 | XMS_ITS | Continuity of Care Document ---
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 It does not include entries that were removed or entered in error. Problem Status Onset Date Problem Type Date of Resolution Comments Source Nicotine Dependence Active Condition [facility] visit for: screening exam Inactive Condition audiogram [facility] INGROWING NAIL Inactive Condition DoD Aftercare Following Surgery Of Musculoskeletal System Active Condition [facility] Allergies, Adverse Reactions, Alerts Combined list of allergies from Department of Defense and Veterans Affairs facilities. It does not include entries that were removed or entered in error. Substance Category Reaction Severity Reaction type Status Date Reported Comments Source No Known Allergies Drug allergy (disorder) active 11/28/2006 [facility] [place] Encounters Combined list of: 1) Encounters from Department of Veterans Affairs facilities going backup to the last 18 months, not all VA inpatient encounters are included; 2) Encounters from the Department of Defense facilities going backup to 280 months. Location Location Details Encounter Type Encounter Number Reason For Visit Attending Provider ADM Date DC Date Status Disposition Source [facility] [place] [facility] [place], DIRECT TO [facility] [id number] 11/21 [place] [employer] [place] [facility] [place] OUTPAT[place] [id number] [facility] 06/27 [place] Limitations [facility] [place] [place] [facility] [facility] [place] [facility] [place] OUT[place] [id number] per EVER Hernandez 07/04 Released with Work/Duty Limitations [facility] [place] [place] [facility] [facility] [place] OUT[place] [id number] f/up booked per EVER Murillo 07/11 Released w/o Limitations [facility] [place] [place] INPATIENT [id number] audiogr am JORDY HANSEN 11/20 Inpatient- Still a Patient [place] [employer] [place] Procedures [...] Permanent Excision Nail, Matrix Left First Toe [id number] 06/28/2005 [place] AGUIL[place] Partial Permanent Excision Nail, Matrix Right First Toe Partial Permanent Excision Nail, Matrix Right First Toe [id number] 06/28/2005 [place] AGU[place] Social History Combined list of available smoking, tobacco, and other social history from Department of Defense and Veterans Affairs facilities. Social History Type Response Date Comment Source Tobacco smoking status NHIS PREVIOUS SMOKER 06/18/2022 [facility] [place] [facility] History of tobacco use AH-BPR SMOKING DEPLOYMENT YES [facility] History of tobacco use QUIT TOBACCO USE IN PAST YEAR 09/24/2007 [place] History of tobacco use V1-PT DECLINES TOBACCO CESSATION MEDS 03/23/2007 [place] History of tobacco use CURRENT SMOKER 03/18/2007 occasionally smokes 6-7 cigarettes, duration 3 years [place] This section is an empty social history section. [facility]
== END 2025-01-17 10:24 | disposition home or self-care (01) ==
PROVIDERS: PCP Physician Assistant; Visit Provider Surgery
DX: Z98.890 Other specified postprocedural states (principal); Z87.19 Personal history of other diseases of the digestive system
CPT/HCPCS: 99024